=== PATIENT | male | born 1985 | race Caucasian/White ===

== ENCOUNTER 2017-11-26 18:47 | Emergency (ER) | payer OTHER ==
--- NOTE | 2017-11-26 18:53 | PDOC ---
Rapid Medical Evaluation Time Seen by Provider: 11/26/17 18:51 Medical Evaluation: Allergies Allergy/AdvReac Type Severity Reaction Status Date / Time No Known Drug Allergies Allergy Verified 09/22/15 06:56 11/26/17 18:51 I have performed a brief in-person evaluation of this patient. The patient presents with a chief complaint of: epigastric discomfort x 1 month "lots of gas", loss of appetite, "tired all day", feels like fever, heartburn, + nausea no vomiting, "sometimes diarrhea", denies urinary pain Pertinent physical exam findings: well appearing I have ordered the following: labs The patient will proceed to the ED for further evaluation. Discharge Disposition - Diagnosis Epigastric pain - Referrals - Patient Instructions - Post Discharge Activity
[2017-11-26 18:55] VITALS: BP 138/89; PULSE 85; TEMP 98.3; BMI 25.1
[2017-11-26 20:28] LABS: ALBUMIN 4.1 g/dl (3.4-5.0); ANION GAP 5 (8-16); BILIRUBIN,TOTAL 0.4 mg/dL (0.2-1.0); BLOOD UREA NITROGEN 19 mg/dL (7-18); CALCIUM 8.6 mg/dL (8.5-10.1); CHLORIDE 105 mmol/L (98-107); CO2 27 mmol/L (21-32); GLUCOSE,RANDOM 101 mg/dL (74-106); SODIUM 137 mmol/L (136-145)
[2017-11-26 20:32] LABS: ALK PHOS 89 U/L (45-117)
[2017-11-26 20:33] LABS: POTASSIUM 4.4 mmol/L (3.5-5.1)
[2017-11-26 20:34] LABS: SGOT/AST 39 U/L (15-37); SGPT/ALT 98 U/L (12-78)
[2017-11-26] MEDS ORDERED: MAG HYDROX/AL HYDROX/SIMETH 30 ML UNIT-DOSE CUP PO ONE (20:45)
--- NOTE | 2017-11-26 20:45 | PDOC ---
History of Present Illness - General Chief Complaint: Pain Stated Complaint: ABD PAIN Time Seen by Provider: 11/26/17 18:51 History Source: Patient Exam Limitations: No Limitations - History of Present Illness Travel History: No Initial Comments: 11/26/17 21:35 Best Contact: Pmhx: N/A Pshx: 2014: Lap Appendectomy Allergies: NKDA 32-year-old male presents to the emergency department complaining of 3/10 epigastric discomfort with burning sensation traveling up to his throat. Patient states he feels an acidic taste in her feels better after burping. Patient states he hasn't been able to eat as frequently due to his discomfort. Patient denies fever, chills, nausea/vomiting, chest pain, shortness of breath, flank pains, urinary symptoms. Patient states he's had similar symptoms with alleviation after taking antacids. Past History - Past Medical History Allergies/Adverse Reactions: Allergies Allergy/AdvReac Type Severity Reaction Status Date / Time No Known Drug Allergies Allergy Verified 11/26/17 18:51 Home Medications: Ambulatory Orders NK [No Known Home Medication] 11/26/17 Anemia: No Asthma: No Cancer: No COPD: No DVT: No Diabetes: No Seizures: No - Surgical History Abdominal Surgery: Yes Appendectomy: Yes - Immunization History Td Vaccination: No - Suicide/Smoking/Psychosocial Hx Smoking Status: No Smoking History: Never smoked Have you smoked in the past 12 months: No Number of Cigarettes Smoked Daily: 0 Information on smoking cessation initiated: No Hx Alcohol Use: No Drug/Substance Use Hx: No Substance Use Type: None Hx Substance Use Treatment: No Review of Systems - Review of Systems Able to Perform ROS?: Yes Comments:: 11/26/17 21:37 CONSTITUTIONAL: Absent: fever, chills, diaphoresis, generalized weakness, malaise, loss of appetite HEENT: Absent: rhinorrhea, nasal congestion, throat pain, throat swelling, difficulty swallowing, mouth swelling, ear pain, eye pain, visual Changes CARDIOVASCULAR: Absent: chest pain, loss of consciousness, palpitations, irregular heart rate, peripheral edema RESPIRATORY: Absent: cough, shortness of breath, dyspnea with exertion, orthopnea, wheezing, stridor, hemoptysis GASTROINTESTINAL: +epigastric pain Absent: \abdominal distension, nausea, vomiting, diarrhea, constipation, melena , hematochezia GENITOURINARY: Absent: dysuria, frequency, urgency, hesitancy, hematuria, flank pain, genital pain MUSCULOSKELETAL: Absent: myalgia, arthralgia, joint swelling SKIN: Absent: rash, itching, pallor HEMATOLOGIC/IMMUNOLOGIC: Absent: easy bleeding, easy bruising, lymphadenopathy, frequent infections ENDOCRINE: Absent: unexplained weight gain, unexplained weight loss, heat intolerance, cold intolerance NEUROLOGIC: Absent: headache, focal weakness or paresthesias, dizziness, unsteady gait, seizure, mental status changes, bladder or bowel incontinence PSYCHIATRIC: Absent: anxiety, depression, suicidal or homicidal ideation, hallucinations. Is the patient limited Austrian proficient: No *Physical Exam - Vital Signs Last Vital Signs Temp Pulse Resp BP Pulse Ox 98.3 F 85 18 138/89 100 11/26/17 18:52 11/26/17 18:52 11/26/17 18:52 11/26/17 18:52 11/26/17 18:52 - Physical Exam Comments: 11/26/17 21:37 GENERAL: Well developed, well nourished. Awake and alert. No acute distress. HEENT: Normocephalic, atraumatic. PERRLA, EOMI. No conjunctival pallor. Sclera are non- icteric. Moist mucous membranes. Oropharynx is clear. NECK: Supple. Full ROM. No JVD. Carotid pulses 2+ and symmetric, without bruits. No thyromegaly. No lymphadenopathy. CARDIOVASCULAR: Regular rate and rhythm. No murmurs, rubs, or gallops. Distal pulses are 2+ and symmetric. PULMONARY: No evidence of respiratory distress. Lungs clear to auscultation bilaterally. No wheezing, rales or rhonchi. ABDOMINAL: Soft. Non-tender. Non-distended. No rebound or guarding. No organomegaly. Normoactive bowel sounds. MUSCULOSKELETAL Normal range of motion at all joints. No bony deformities or tenderness. No CVA tenderness. EXTREMITIES: No cyanosis. No clubbing. No edema. No calf tenderness. SKIN: Warm and dry. Normal capillary refill. No rashes. No jaundice. NEUROLOGICAL: Alert, awake, appropriate. Cranial nerves 2-12 intact. No deficits to light touch and temperature in face, upper extremities and lower extremities. No motor deficits in the in face, upper extremities and lower extremities. Normoreflexic in the upper and lower extremities. Normal speech. Toes are down- going bilaterally. Gait is normal without ataxia. PSYCHIATRIC: Cooperative. Good eye contact. Appropriate mood and affect. ED Treatment Course - LABORATORY CBC & Chemistry Diagram: 11/26/17 19:37 11/26/17 19:38 - ADDITIONAL ORDERS Additional order review: Laboratory Results 11/26/17 11/26/17 19:38 19:38 Sodium 137 Potassium 4.4 Chloride 105 Carbon Dioxide 27 Anion Gap 5 L BUN 19 H D Creatinine 1.0 D Creat Clearance w eGFR > 60 Random Glucose 101 D Calcium 8.6 Total Bilirubin 0.4 D AST 39 H D ALT 98 H D Alkaline Phosphatase 89 Total Protein 8.0 Albumin 4.1 Lipase 163 Progress Note - Progress Note Progress Note: 2206hrs: Pt is Pain free and wishes to be discharge *DC/Admit/Observation/Transfer Diagnosis at time of Disposition: Epigastric pain Gastritis Qualifiers: Gastritis type: other gastritis Chronicity: chronic Gastritis bleeding: without bleeding Qualified Code(s): K29.50 - Unspecified chronic gastritis without bleeding - Discharge Dispostion Disposition: HOME Condition at time of disposition: Stable Admit: No - Referrals Referrals: Mitchell Hutson MD [Staff Physician] - - Patient Instructions Printed Discharge Instructions: DI for Gastritis Additional Instructions: [id number]-[id number] antacid Be sure to follow-up with the GI doctor listed on your discharge Avoid eating spicy food Return back to the emergency department for severe/persistent or worsening symptoms - Post Discharge Activity
[2017-11-26] MEDS ORDERED: LIDOCAINE VISCOUS 2% ORAL/TOP 100 ML BOTTLE MM ONE (20:46)
[2017-11-26 20:47] LABS: BASO % 0.3 % (0-2.0); EOS % 3.4 % (0-4.5); HEMATOCRIT 45.2 % (35.4-49); HEMOGLOBIN 15.2 GM/dL (11.7-16.9); LYMPH % 36.2 % (8-40); MCH 28.7 pg (25.7-33.7); MCHC 33.6 g/dl (32.0-35.9); MEAN CELL VOLUME 85.3 fl (80-96); MEAN PLT VOLUME 9.2 fl (7.5-11.1); MONO % 9.9 % (3.8-10.2); NEUT % 50.2 % (42.8-82.8); PLATELET COUNT 238 K/MM3 (134-434); RDW 13.2 % (11.9-15.9); WHITE BLOOD COUNT 7.4 K/mm3 (4.0-10.0)
[2017-11-26] MEDS ORDERED: FAMOTIDINE 20 MG/50 ML IVPB 20 MG/50 ML MG IVPB ONE (21:47)
[2017-11-26] MEDS ORDERED: MAG HYDROX/AL HYDROX/SIMETH 30 ML UNIT-DOSE CUP ONE (21:47)
[2017-11-26] MEDS ORDERED: LIDOCAINE VISCOUS 2% ORAL/TOP 20 ML UNIT-DOSE CUP ONE (21:47)
[2017-11-26] MEDS ORDERED: FAMOTIDINE IV 20 MG/12 ML VIAL IVPUSH SCH (22:00)
== END 2017-11-26 22:50 | disposition home or self-care (01) ==
LOC: JER 18:47
PROC: 3E033GC Introduction of Other Therapeutic Substance into Peripheral Vein, Percutaneous Approach (ICD-10-PCS; principal; 2017-11-26)
DX: K29.50 Unspecified chronic gastritis without bleeding (principal)
CPT/HCPCS: 36415; 80053; 83690; 85025; 96365; 96366; 99282-25

== ENCOUNTER 2019-11-29 16:17 | Emergency (ER) | payer OTHER ==
[2019-11-29 16:31] VITALS: BMI 29.0
[2019-11-29] MEDS ORDERED: MAG HYDROX/AL HYDROX/SIMETH 30 ML UNIT-DOSE CUP PO ONE (16:48)
[2019-11-29] MEDS ORDERED: FAMOTIDINE 20 MG/50 ML IVPB 20 MG/50 ML MG IVPB ONE ×2 (16:48→17:47)
[2019-11-29] MEDS ORDERED: LIDOCAINE VISCOUS 2% ORAL/TOP 20 ML UNIT-DOSE CUP MM ONE (16:49)
--- NOTE | 2019-11-29 16:55 | PDOC ---
History of Present Illness - General Chief Complaint: Pain, Acute Stated Complaint: ABD PAIN Time Seen by Provider: 11/29/19 16:37 History Source: Patient Exam Limitations: No Limitations - History of Present Illness Initial Comments: 11/29/19 16:50 34-year-old male history of gastritis currently not taking any medication presents complaining of 2 weeks of midepigastric burning sensation. Reports 3 weeks ago drank fresh squeezed lemon with vinegar on 4 occasions to prevent C OVID. After ingesting these drinks reports persistent midepigastric discomfort with decreased appetite. Denies cough, fever, chills, shortness of breath, back pain, difficulty breathing, recent travel, sick contacts, changes in stool color, urinary complaints. Patient is currently on day 2 of fasting due to , eats after approximately 8 PM every evening during this time. Reports normal endoscopy approximately 1-1/2 years ago. ROS: GENERAL/CONSTITUTIONAL: No fever, chills, weakness, dizziness HEAD, EYES, EARS, NOSE AND THROAT: No changes in vision, No ear pain or discharge, No sore throat CARDIOVASCULAR: No chest pain RESPIRATORY: No shortness of breath or cough GASTROINTESTINAL: Abdominal discomfort, denies nausea, vomiting, diarrhea or constipation GENITOURINARY: No dysuria MUSCULOSKELETAL: No neck or back pain SKIN: No rash NEUROLOGIC: No headache, vertigo, loss of consciousness, or loss of sensation PE: GENERAL: well-appearing, NAD HEAD: NCAT EYES: Pupils equal, round and reactive to light, sclera anicteric, conjunctiva clear ENT: pharynx: no erythema, no exudate, uvula midline NECK: supple CHEST: nontender RESP: clear, no w/r/r CARDIO: rrr, no m/g/r ABD: +BS, soft, nontender, non distended BACK: no midline spinal ttp, no CVAT EXTREMITIES: Normal range of motion, no edema NEUROLOGICAL: Normal speech, normal gait SKIN: Warm, Dry Is this a multiple visit Asthma Patient?: No Past History - Past Medical History Allergies/Adverse Reactions: Allergies Allergy/AdvReac Type Severity Reaction Status Date / Time No Known Drug Allergies Allergy Verified 11/26/17 18:51 Home Medications: Ambulatory Orders Omeprazole 20 mg PO ONCE 30 Days #30 tablet. 11/29/19 Anemia: No Asthma: No Cancer: No COPD: No DVT: No Diabetes: No Seizures: No - Surgical History Abdominal Surgery: Yes Appendectomy: Yes - Immunization History Td Vaccination: No Immunization Up to Date: No - Psycho Social/Smoking Cessation Hx Smoking Status: No Smoking History: Never smoked Have you smoked in the past 12 months: No Number of Cigarettes Smoked Daily: 0 Hx Alcohol Use: No Drug/Substance Use Hx: No Substance Use Type: None Hx Substance Use Treatment: No *Physical Exam - Vital Signs Last Vital Signs Temp Pulse Resp BP Pulse Ox 99.2 F 81 18 137/83 99 11/29/19 16:26 11/29/19 16:26 11/29/19 16:26 11/29/19 16:26 11/29/19 16:26 ED Treatment Course - LABORATORY CBC & Chemistry Diagram: 11/29/19 18:07 11/29/19 18:07 Medical Decision Making - Medical Decision Making 11/29/19 16:54 34-year-old male with history of gastritis presents complaining of midepigastric discomfort and decreased appetite x2 weeks. This began after drinking approximately 4 glasses of fresh squeezed lemon with vinegar on 4 different occasions 3 weeks ago and attempt to prevent COVID infection. Abdomen soft nontender Labs EKG IV fluids IV Pepcid P.o. Maalox Reassess 11/29/19 19:23 Patient feels better after IV fluids and IV Pepcid Refused to take p.o. Maalox and viscous lidocaine given his observance of Ramadan Abdomen benign Labs reviewed Stable for discharge Discharge - Discharge Information Problems reviewed: Yes Clinical Impression/Diagnosis: Abdominal pain Qualifiers: Abdominal location: epigastric Qualified Code(s): R10.13 - Epigastric pain Condition: Stable Disposition: HOME - Admission No - Follow up/Referral Referrals: Rodrick Ken [Primary Care Provider] - - Patient Discharge Instructions Additional Instructions: Take omeprazole 20 mg 1 tablet daily Follow-up with your doctor within 1 week Return to ED if fever, chills, shortness of breath, vomiting, diarrhea, abdominal distention, worsening abdominal pain - Post Discharge Activity
[2019-11-29] MEDS ORDERED: LIDOCAINE VISCOUS 2% ORAL/TOP 20 ML UNIT-DOSE CUP ONE (17:33)
[2019-11-29] MEDS ORDERED: FAMOTIDINE 20 MG TABLET ONE (17:33)
[2019-11-29] MEDS ORDERED: MAG HYDROX/AL HYDROX/SIMETH 30 ML UNIT-DOSE CUP ONE (17:33)
[2019-11-29 18:16] LABS: BASO % 0.4 % (0-2.0); EOS % 3.3 % (0-4.5); HEMATOCRIT 49.7 % (35.4-49); HEMOGLOBIN 16.3 GM/dL (11.7-16.9); LYMPH % 36.4 % (8-40); MCH 27.7 pg (25.7-33.7); MCHC 32.8 g/dl (32.0-35.9); MEAN CELL VOLUME 84.4 fl (80-96); MEAN PLT VOLUME 8.8 fl (7.5-11.1); MONO % 10.2 % (3.8-10.2); NEUT % 49.7 % (42.8-82.8); PLATELET COUNT 254 K/MM3 (134-434); RBC 5.89 M/mm3 (4.00-5.60); WHITE BLOOD COUNT 6.5 K/mm3 (4.0-10.0)
[2019-11-29 18:31] LABS: INR 1.02 (0.83-1.09)
[2019-11-29 18:41] LABS: ALBUMIN 4.2 g/dl (3.4-5.0); BILIRUBIN,TOTAL 0.6 mg/dL (0.2-1); CALCIUM 8.9 mg/dL (8.5-10.1); CREATININE 0.9 mg/dL (0.55-1.3); POTASSIUM 4.1 mmol/L (3.5-5.1); TOT PROT 8.4 g/dl (6.4-8.2)
[2019-11-29 19:40] VITALS: BP 115/80; PULSE 75; TEMP 98.4
--- NOTE | 2019-12-01 14:53 | EKG ---
Test Reason : Blood Pressure : / mmHG Vent. Rate : 076 BPM Atrial Rate : 076 BPM P-R Int : 136 ms QRS Dur : 092 ms QT Int : 356 ms P-R-T Axes : 056 033 031 degrees QTc Int : 400 ms NORMAL SINUS RHYTHM NORMAL ECG NO PREVIOUS ECGS AVAILABLE Confirmed by ZHOU TRAMMELL MD ([id number]) on 12/01/2019 2:53:14 PM Referred By: Confirmed By:ZHOU TRAMMELL MD
== END 2019-11-29 19:40 | disposition home or self-care (01) ==
LOC: JER 16:17
PROC: 3E033GC Introduction of Other Therapeutic Substance into Peripheral Vein, Percutaneous Approach (ICD-10-PCS; principal; 2019-11-29)
DX: R10.13 Epigastric pain (principal)
CPT/HCPCS: 36415; 80053; 83690; 83735; 85025; 85610; 85730; 93005; 93010; 96365; 99284-25

== ENCOUNTER 2022-07-01 20:46 | Emergency (ER) | payer OTHER ==
[2022-07-01 20:53] VITALS: BP 129/76; PULSE 65; RESP 20; TEMP 97.2; BMI 25.8
== END 2022-07-02 | disposition left against medical advice (07) ==
LOC: JER 20:46
DX: H92.01 Otalgia, right ear (principal)
CPT/HCPCS: 99281-25

== ENCOUNTER 2022-12-26 09:30 | Day surgery (SDC) | payer OTHER ==
[2022-12-26 09:39] VITALS: BMI 26.1
[2022-12-26 12:00] VITALS: TEMP 98
[2022-12-26 12:29] VITALS: BP 103/70; PULSE 63; RESP 15
== END 2022-12-26 12:30 | disposition home or self-care (01) ==
LOC: JASU-ENDO 09:30
PROVIDERS: ATTEND Student in an Organized Health Care Education/Training Program
PROC: 0DB78ZX Excision of Stomach, Pylorus, Via Natural or Artificial Opening Endoscopic, Diagnostic (ICD-10-PCS; 2022-12-26)
PROC: 0DB68ZX Excision of Stomach, Via Natural or Artificial Opening Endoscopic, Diagnostic (ICD-10-PCS; 2022-12-26)
PROC: 0DB98ZX Excision of Duodenum, Via Natural or Artificial Opening Endoscopic, Diagnostic (ICD-10-PCS; principal; 2022-12-26 11:30)
DX: K29.70 Gastritis, unspecified, without bleeding (principal)
CPT/HCPCS: 88305-TC; 88342-TC

== ENCOUNTER 2023-05-12 22:11 | Emergency (ER) | payer OTHER ==
[2023-05-12 22:16] VITALS: BP 151/94; PULSE 93; RESP 18; TEMP 97.9; BMI 25.2
[2023-05-12] MEDS ORDERED: KETOROLAC TROMETHAMINE 15 MG/ML VIAL IVPUSH ONE (23:00)
[2023-05-12 23:05] LABS: PH,URINE 7.5 (5.0-8.0); URINE APPEARANCE Slightly Cloudy; URINE BILIRUBIN 1+ (NEGATIVE); URINE COLOR Dark yellow; URINE GLUCOSE (UA) Negative (NEGATIVE); URINE KETONE Trace (NEGATIVE); URINE LEUK ESTERASE Negative (NEGATIVE); URINE NITRITE Negative (NEGATIVE); URINE PROTEIN 1+ (NEGATIVE); URINE UROBILINOGEN 0.2 mg/dL (0.2-1.0)
[2023-05-12 23:07] LABS: EPI CELLS 8.7 /uL (0-25.1); HYALINE CASTS 0.76 /uL (0-3.1); URINE RBC 23237.8 /uL (0-23.9); URINE WBC 71.4 /uL (0-25.8)
[2023-05-12] MEDS ORDERED: KETOROLAC TROMETHAMINE 15 MG/ML VIAL ONE (23:08)
[2023-05-12 23:35] LABS: BASO % 0.3 % (0-2.0); EOS % 0.1 % (0-4.5); HEMATOCRIT 41.8 % (35.4-49); HEMOGLOBIN 14.1 GM/dL (11.7-16.9); LYMPH % 10.5 % (8-40); MCH 27.9 pg (25.7-33.7); MCHC 33.8 g/dl (32.0-35.9); MEAN CELL VOLUME 82.6 fl (80-96); MEAN PLT VOLUME 8.2 fl (7.5-11.1); MONO % 7.8 % (3.8-10.2); NEUT % 81.3 % (42.8-82.8); PLATELET COUNT 252 10^3/uL (134-434); RBC 5.06 M/mm3 (4.00-5.60)
[2023-05-13 00:05] LABS: BLOOD UREA NITROGEN 21.7 mg/dL (7-18); CALCIUM 9.1 mg/dL (8.5-10.1)
[2023-05-13 00:08] LABS: CREATININE 1.3 mg/dL (0.55-1.3)
[2023-05-13 00:10] LABS: BILIRUBIN,TOTAL 0.6 mg/dL (0.2-1); TOT PROT 7.6 g/dl (6.4-8.2)
== END 2023-05-13 00:34 | disposition home or self-care (01) ==
LOC: JER 22:11 → MERGE 22:11 → JER 05-13 00:34
PROC: 3E0333Z Introduction of Anti-inflammatory into Peripheral Vein, Percutaneous Approach (ICD-10-PCS; principal; 2023-05-12)
DX: R10.32 Left lower quadrant pain (principal); R31.9 Hematuria, unspecified; N13.2 Hydronephrosis with renal and ureteral calculous obstruction
CPT/HCPCS: 36415; 74176-TC; 80053; 81003; 85025; 87086; 99284-25